=== PATIENT | female | born 1960 | race Caucasian/White ===

== ENCOUNTER 2016-11-20 10:50 | Emergency (ER) ==
[2016-11-20] MEDS ORDERED: MORPHINE 4 MG/ML SYRINGE IVP STA (11:08)
[2016-11-20] MEDS ORDERED: SODIUM CHLORIDE 1,000 ML IV STA (11:08)
[2016-11-20] MEDS ORDERED: ZOFRAN 4 MG/2 ML IVP STA (11:08)
[2016-11-20 11:09] VITALS: TEMP 96.5; BMI 28.3
--- NOTE | 2016-11-20 11:16 | ED.PDOC ---
General ED Provider: Dr. NATALIE MICHELE JR Chief Complaint: Abdominal Pain Stated Complaint: right upper quadrants pain it is my gall bladder everyone inmy family has had it, my parents grand parents brothers my sister had two gall bladder ducts. pain for years worse in August saw MD in [place] told it was her heart but did nto go to [facility] in [facility] since 1994 but no PMD"thisis all that is wrong with me" Time Seen by Physician: 11:16 Mode of Arrival: Walk-In Information Source: Patient Exam Limitations: No limitations Nursing and Triage Documentation Reviewed and Agree: No Review of Systems - Review Of Systems Constitutional: Reports: No symptoms Eyes: Reports: No symptoms Ears, Nose, Mouth, Throat: Reports: No symptoms Respiratory: Reports: No symptoms Cardiac: Reports: No symptoms GI: Reports: Abdominal pain, Nausea : Reports: No symptoms Musculoskeletal: Reports: No symptoms Skin: Reports: No symptoms Neurological: Reports: No symptoms Endocrine: Reports: No symptoms Hematologic/Lymphatic: Reports: No symptoms All Other Systems: Other Past Medical History - Past Medical History Previously Healthy: Yes Endocrine: Reports: None Cardiovascular: Reports: None Respiratory: Reports: None Hematological: Reports: None Gastrointestinal: Reports: Gallstones (not diagnosed) Genitourinary: Reports: None Neuro/Psych: Reports: None Musculoskeletal: Reports: None Cancer: Reports: None Last Menstrual Period: UNKNOWN - Surgical History General Surgical History: Reports: None - Family History Family History: Reports: Other (gall stones many family members) - Social History Smoking Status: Current every day smoker, Light tobacco smoker Hx Substance Use: No Alcohol Screening: None Physical Exam - Physical Exam Appearance: Ill-appearing, Obese Pain Distress: Moderate Eyes: ISAAC, EOMI, Conjunctiva clear ENT: Ears normal, Nose normal, Oropharynx normal Neck: Supple Respiratory: Airway patent, Breath sounds clear, Breath sounds equal, Respirations nonlabored Cardiovascular: RRR, Pulses normal, No rub, No murmur GI/: Soft, No masses, Bowel sounds normal, No Organomegaly, Tender (RUQ nonfocal no masses) Musculoskeletal: Normal strength, ROM intact, No edema, No calf tenderness Skin: Warm, Dry, Normal color Neurological: Sensation intact, Motor intact, Reflexes intact, Cranial nerves intact, Alert, Oriented Psychiatric: Affect appropriate, Mood appropriate Critical Care Note - Critical Care Note Total Time (mins): 20 Course - Course Hematology/Chemistry: 11/20/16 11:25 Orders, Labs, Meds: Lab Review 11/20/16 11:25 WBC 12.05 H RBC 5.17 Hgb 14.0 Hct 43.5 MCV 84.1 MCH 27.1 MCHC 32.2 RDW Coeff of [place]ito 14.0 Plt Count 355 Immature Gran % (Auto) 0.3 Neut % (Auto) 83.4 Lymph % (Auto) 13.0 [place] % (Auto) 2.3 Eos % (Auto) 0.4 Baso % (Auto) 0.6 Immature Gran # (Auto) 0.0 Neut # 10.0 H Lymph # 1.6 [place] # 0.3 L Eos # 0.1 Baso # 0.1 Orders Category Date Time Status ED IV/MEDIPORT/POWERPORT .ONCE EMERGENCY 11/20/16 11:16 Active AMYLASE Stat LAB 11/20/16 11:25 Received CBC W/ AUTO DIFF Stat LAB 11/20/16 11:25 Completed COMPREHENSIVE METABOLIC PANEL Stat LAB 11/20/16 11:25 Received H. PYLORI SCREEN Stat LAB 11/20/16 11:25 Received LIPASE Stat LAB 11/20/16 11:25 Received URINALYSIS C & S IF INDICATED Stat LAB 11/20/16 11:16 Uncollected 0.9 % Sodium Chloride [Saline Flush] MEDS 11/20/16 11:16 Active 1 syr IVF PRN PRN Morphine Sulfate [Morphine 4 mg/ml Syringe] MEDS 11/20/16 11:08 Discontinued 4 mg IVP ONCE STA Ondansetron HCl/Pf [Zofran 4 mg/2 ml] MEDS 11/20/16 11:08 Discontinued 4 mg IVP ONCE STA Sodium Chloride 0.9% [Sodium Chloride] 1,000 ml MEDS 11/20/16 11:[address] ABDOMEN/PELVIS WO CONTRAST Stat RADS 11/20/16 11:16 Completed Medications Generic Name Dose Route Start Last Admin Trade Name Freq PRN Reason Stop Dose Admin Sodium Chloride 1 syr 11/20/16 11:16 Saline Flush IVF PRN PRN To flush IV Discontinued Medications Generic Name Dose Route Start Last Admin Trade Name Freq PRN Reason Stop Dose Admin Sodium Chloride 1,000 mls @ 1,000 mls/hr 11/20/16 11:08 11/20/16 11:59 Sodium Chloride IV 11/20/16 12:07 1,000 mls/hr BOLUS STA Administration Morphine Sulfate 4 mg 11/20/16 11:08 11/20/16 12:00 Morphine 4 Mg/Ml Syringe IVP 11/20/16 11:09 4 mg ONCE STA Administration Ondansetron HCl 4 mg 11/20/16 11:08 11/20/16 12:03 Zofran 4 Mg/2 Ml IVP 11/20/16 11:09 4 mg ONCE STA Administration Vital Signs: Temp Pulse Resp BP Pulse Ox 11/20/16 12:35 178/93 H 11/20/16 10:52 96.5 F L 67 20 180/108 H 98 Departure - Departure Time of Disposition: 13:00 Disposition: HOME SELF-CARE Discharge Problem: Abdominal pain Instructions: Acute Abdominal Pain (ED), Gas and Bloating (ED) Condition: Good Pt referred to PMD for follow-up: Yes Additional Instructions: 16 ounces of clear uncarbonated fluids(water juice tea) for abdominal pain may use gas ex or simethicone for symptoms avoid carbonated beverages drink water when eating recheck PMD next week blood pressure is high, recheck next week, discuss medication with PMD may follow with [facility] next week Prescriptions: Enalapril Maleate [Vasotec] 5 mg PO BID #60 tablet Allergies/Adverse Reactions: Allergies No Known Allergies Allergy (Unverified 11/20/16 11:01) Home Medications: Ambulatory Orders Enalapril Maleate [Vasotec] 5 mg PO BID #60 tablet 11/20/16
[2016-11-20 11:35] LABS: BASOPHILS # (AUTO) 0.1 K/uL (0-0.2); BASOPHILS % (AUTO) 0.6 % (0.0-3.0); EOSINOPHILS # (AUTO) 0.1 K/ul (0.0-0.7); EOSINOPHILS % (AUTO) 0.4 % (0.0-7.0); HEMATOCRIT 43.5 % (37.0-47.0); IMMATURE GRANULOCYTE % (AUTO) 0.3 % (0.0-5.0); LYMPHOCYTES # (AUTO) 1.6 K/uL (0.60-3.4); MEAN CORPUSCULAR HEMOGLOBIN 27.1 pg (27.0-31.0); MEAN CORPUSCULAR HGB CONC 32.2 (31.8-35.4); MEAN CORPUSCULAR VOLUME 84.1 fl (81.0-99.0); MONOCYTES # (AUTO) 0.3 K/uL (0.4-2.0); MONOCYTES % (AUTO) 2.3 (0-10); NEUTROPHILS % (AUTO) 83.4; PLATELET COUNT 355 10^3/uL (140-440); RED BLOOD COUNT 5.17 10^6/ul (4.20-5.40); WHITE BLOOD COUNT 12.05 K/ul (4.6-10.2)
[2016-11-20 11:52] LABS: ALBUMIN 4.2 g/dL (3.4-5.0); ALBUMIN/GLOBULIN RATIO 1.17; BILIRUBIN,TOTAL 0.26 mg/dL (0.00-1.20); BUN/CREATININE RATIO 28.57; CALCIUM 9.9 mg/dL (8.2-10.2); CREATININE 0.7 mg/dL (0.60-1.30); TOTAL PROTEIN 7.8 g/dL (6.4-8.2)
--- NOTE | 2016-11-20 12:02 | CT ---
Exam: CT scan of the abdomen and pelvis without contrast History: Abdominal pain, particularly right upper quadrant pain. Family history of gallbladder dis ease. Patient is a smoker. Findings: Computed tomography of the abdomen and pelvis was performed with images obtained and revi ewed in the axial, coronal, and sagittal planes at 3 mm slice thickness. Neither intravenous nor or al gastrointestinal contrast material was utilized. Review of lung window settings through the lung bases shows no evidence of acute basilar infiltrate, consolidate or basilar pleural effusion. On this recumbent study the heart size does appear to be prominent. The nonenhanced liver and spleen were without significant abnormality for a noncontrast study. The liver is somewhat bulky in appearance. The gallbladder appears to be adequately distended and showed no evidence of radiodense gallstones n or pericholecystic inflammatory changes. The nonenhanced pancreas appeared normal. The adrenal gla nds appear to be of normal size and configuration. There is suggestion of a few tiny right renal nonobstructing calculi most evident in the mid and low er pole regions generally appearing to be of approximately 1 mm in size. There is also suggestion o f minimal nonobstructing left renal calculi formation. Bilaterally there is no evidence of hydronep hrosis, ureteral dilatation nor definite radiopaque ureteral calculi. The level of ureteral vesicle junctions and the bladder were without evidence of radiopaque calculus. Throughout the abdomen and pelvis there is no evidence of a suspicious mass, evidence of pathologic adenopathy, evidence of active inflammatory changes nor abnormal fluid collection. The appendix petr ears to be present and appeared normal. There is a moderate amount of fecal material intermixed wit h gas seen through the colon and to the level of the rectum. Abdominal aorta and iliac arteries petr eared normal in caliber. Impression: Examination demonstrates multiple tiny bilateral nonobstructing renal calculi. The gallbladder appears to be adequately distended and showed no evidence of definite radiodense gal lstones nor pericholecystic inflammatory changes. Moderate amount of retained fecal material intermixed with gas seen through the colon and extending to the level of the rectum.. Incidentally noted is severe degenerative disc disease at T12-L1, L1-L2 and L2-L3. There is also be lieved to be a mild to moderate compression deformity of the superior aspect of T10.
[2016-11-20 12:36] VITALS: BP 178/93
[2016-11-20 12:54] LABS: H. PYLORI ANTIBODY NEGATIVE (NEGATIVE); H.PYLORI INTERNAL QC INTERNAL QC VALID
== END 2016-11-20 13:35 | disposition home or self-care (01) ==
LOC: ED 10:50
DX: R10.11 Right upper quadrant pain (principal); R11.0 Nausea; R03.0 Elevated blood-pressure reading, without diagnosis of hypertension; F17.210 Nicotine dependence, cigarettes, uncomplicated
CPT/HCPCS: 36415; 80053; 82150; 83690; 85025; 86677; 96361; 96374; 96375; 99283